=== PATIENT | male | born 1995 | race Caucasian/White ===

== ENCOUNTER 2021-07-25 20:43 | Inpatient (IN) ==
[2021-07-25] MEDS ORDERED: Isovue-370 500 ML BOTTLE IVP ONE (21:00)
[2021-07-25 21:24] LABS: Basophils % 0.6 %; Bilirubin,Urine Negative (Negative); Blood,Urine Trace (Negative); Clarity,Urine Clear (Clear); Color,Urine Light-Yellow (Yellow); Eosinophils # 0.2 K/mcL (0.0-0.6); Eosinophils % 2.6 %; Glucose,Urine (UA) Normal (Normal); Hematocrit 43.3 % (37.5-50.1); Hemoglobin 14.8 g/dL (12.9-16.9); Immature Granulocytes % 0.2 % (0-4); Ketones,Urine Negative (Negative); Leukocyte Esterase,Urine Negative (Negative); Lymphocytes # 1.9 K/mcL (0.6-4.6); Lymphocytes % 28.7 %; Mean Corpuscular HGB Conc 34.2 g/dL (31.6-35.5); Mean Corpuscular Hemoglobin 29.2 pg (28.0-33.3); Mean Corpuscular Volume 85.4 fL (83.0-100.0); Mean Platelet Volume 9.2 fL (9.4-12.4); Monocytes # 0.5 K/mcL (0.0-1.3); Monocytes % 8.2 %; Mucus,Urine Few per lpf (None-Few); Neutrophils # 3.8 K/mcL (1.6-8.9); Nitrite,Urine Negative (Negative); PH,Urine 5.5 pH Units (5.0-8.0); Platelet Count 252 K/mcL (140-400); Protein,Urine 50 mg/dL (Neg-Trace); RBC,Urine 0-3 per hpf (0-3); Red Blood Count 5.07 M/mcL (4.19-5.50); Segmented Neutrophils % 59.7 %; Specific Gravity,Urine 1.012 (1.010-1.025); Squamous Epithelial Cell,Urine Few per hpf (None-Few); Urobilinogen,Urine Normal (Normal); White Blood Count 6.4 K/mcL (4.3-11.1)
[2021-07-25 21:43] LABS: Alanine Aminotransferase 19 Units/L (7-52); Albumin 4.8 g/dL (3.5-5.7); Albumin/Globulin Ratio 2.2 (1.1-2.2); Alkaline Phosphatase 85 Units/L (34-104); Amylase 14 Units/L (29-103); Aspartate Amino Transferase 17 Units/L (13-39); BUN/Creatinine Ratio 13 (6-26); Bilirubin,Total 1.2 mg/dL (0.3-1.0); Blood Urea Nitrogen 22 mg/dL (6-20); Calcium 9.8 mg/dL (8.6-10.3); Carbon Dioxide 27 mEq/L (23-29); Chloride 103 mEq/L (98-107); Globulin 2.2 g/dL (2.4-3.5); Glucose 86 mg/dL (70-105); Lipase 7 Units/L (11-82); Osmolality,Calculated 291 (280-300); Potassium 3.6 mEq/L (3.5-5.1); Sodium 139 mEq/L (136-145); eGFR For African Americans > 60 (> 60); eGFR For Non-African Americans 51 (> 60)
[2021-07-25] MEDS ORDERED: 0.9 % Sodium Chloride 1,000 ML IV ONE (23:06)
[2021-07-25] MEDS ORDERED: cefTRIAXone 1,000 MG in 0.9 % Sodium Chloride 10 ML IVP ONE (23:08)
[2021-07-26 00:12] LABS: Estimated Average Glucose 88 mg/dl; Hemoglobin A1C 4.7 %
[2021-07-26] MEDS ORDERED: Ondansetron 4 MG/2 ML VIAL IVP PRN ×2 (00:20→11:21)
[2021-07-26] MEDS ORDERED: Melatonin 3 MG TABLET PO PRN (00:20)
[2021-07-26] MEDS ORDERED: Acetaminophen 325 MG TABLET PO PRN (00:20)
[2021-07-26] MEDS ORDERED: Naloxone 0.4 MG/ML INJ IVP PRN (00:20)
[2021-07-26] MEDS ORDERED: D5% in Water 1,000 ML IVC PRN (00:32)
[2021-07-26] MEDS ORDERED: *HR* Dextrose 50 % in Water (Syg) 50 ML SYRINGE IVP PRN (00:32)
[2021-07-26] MEDS ORDERED: Dextrose 4 GM Chewable Tablets PO PRN ×2 (00:32)
[2021-07-26] MEDS ORDERED: *HR* LORazepam 0.5 MG TABLET PO ONE (01:17)
[2021-07-26] MEDS: Ringers Solution, Lactated 1,000 ML IVC SCH ×2 (02:03→11:01)
[2021-07-26 03:20] LABS: Basophils % 0.5 %; Eosinophils # 0.1 K/mcL (0.0-0.6); Eosinophils % 2.2 %; Hematocrit 42.2 % (37.5-50.1); Hemoglobin 14.3 g/dL (12.9-16.9); Immature Granulocytes % 0.2 % (0-4); Lymphocytes # 1.6 K/mcL (0.6-4.6); Mean Corpuscular HGB Conc 33.9 g/dL (31.6-35.5); Mean Corpuscular Hemoglobin 29.1 pg (28.0-33.3); Mean Corpuscular Volume 85.8 fL (83.0-100.0); Mean Platelet Volume 9.4 fL (9.4-12.4); Monocytes # 0.6 K/mcL (0.0-1.3); Monocytes % 8.8 %; Neutrophils # 4.1 K/mcL (1.6-8.9); Platelet Count 226 K/mcL (140-400); Red Blood Count 4.92 M/mcL (4.19-5.50); Segmented Neutrophils % 63.3 %; White Blood Count 6.5 K/mcL (4.3-11.1)
[2021-07-26 03:31] LABS: Amphetamine Screen,Urine Negative ng/mL (Cutoff=1000); Barbiturate Screen,Urine Negative ng/mL (Cutoff=200); Benzodiazepines Screen,Urine Negative ng/mL (Cutoff=200); Cannabinoid Screen,Urine Negative ng/mL (Cutoff = 50); Chloride,Urine 40 mEq/L; Cocaine Screen,Urine Negative ng/mL (Cutoff= 300); Creatinine,Urine 26 mg/dL; Microalbum/Creatinine Ratio,Ur 292 mcg/mg (Less than 30); Microalbumin,Urine 76 mg/L; Opiate Screen,Urine Negative ng/mL (Cutoff=300); Phencyclidine Screen,Urine Negative ng/mL (Cutoff=25); Potassium,Urine 7.1 mEq/L; Sodium, Urine 41.9 mEq/L
[2021-07-26 03:33] LABS: INR 1.1; Prothrombin Time 12.2 Seconds (9.4-12.1)
[2021-07-26 03:36] LABS: Activated Partial Thrombo Time 30.1 Seconds (26.0-36.0)
[2021-07-26 03:53] LABS: C-Reactive Protein 14 mg/L (Less than 10); Creatine Kinase 53 Units/L (30-223); Gamma Glutamyl Transpeptidase 29 Units/L (7-64)
[2021-07-26 03:54] LABS: Alanine Aminotransferase 17 Units/L (7-52); Albumin 4.6 g/dL (3.5-5.7); Albumin/Globulin Ratio 2.6 (1.1-2.2); Alkaline Phosphatase 76 Units/L (34-104); Aspartate Amino Transferase 15 Units/L (13-39); BUN/Creatinine Ratio 13 (6-26); Bilirubin,Total 1.2 mg/dL (0.3-1.0); Blood Urea Nitrogen 21 mg/dL (6-20); Calcium 9.5 mg/dL (8.6-10.3); Carbon Dioxide 27 mEq/L (23-29); Chloride 105 mEq/L (98-107); Globulin 1.8 g/dL (2.4-3.5); Glucose 89 mg/dL (70-105); Osmolality,Calculated 296 (280-300); Phosphorous 4.2 mg/dL (2.7-4.5); Potassium 3.3 mEq/L (3.5-5.1); Sodium 142 mEq/L (136-145); Total Protein 6.4 g/dL (6.4-8.9); eGFR For African Americans > 60 (> 60); eGFR For Non-African Americans 53 (> 60)
[2021-07-26] MEDS: cefTRIAXone 1,000 MG in 0.9 % Sodium Chloride 10 ML IVP SCH (10:24)
[2021-07-26 10:31] LABS: Complement C3 141 mg/dL (87-200)
[2021-07-26] MEDS: Lactobacillus 1 EACH CAP.SPRINK PO SCH ×2 (10:31→20:07)
[2021-07-26 11:56] LABS: Hepatitis B Surface Antigen Nonreactive (Nonreactive)
[2021-07-26 12:26] LABS: Hepatitis C Virus Antibody Nonreactive (Nonreactive)
[2021-07-26 12:27] LABS: Hepatitis B Core IgM Nonreactive (Nonreactive)
[2021-07-26 12:29] LABS: Hepatitis A Antibody IgM Nonreactive (Nonreactive)
[2021-07-26] MEDS: 0.9 % Sodium Chloride 1,000 ML IVC SCH (14:41)
[2021-07-26] MEDS: Pantoprazole 40 MG VIAL IVP SCH (17:21)
[2021-07-27] MEDS: 0.9 % Sodium Chloride 1,000 ML IVC SCH ×2 (00:44→10:22)
[2021-07-27 01:07] LABS: Basophils % 0.3 %; Eosinophils # 0.2 K/mcL (0.0-0.6); Hematocrit 39.7 % (37.5-50.1); Hemoglobin 13.8 g/dL (12.9-16.9); Immature Granulocytes % 0.2 % (0-4); Lymphocytes # 1.4 K/mcL (0.6-4.6); Mean Corpuscular HGB Conc 34.8 g/dL (31.6-35.5); Mean Corpuscular Volume 86.3 fL (83.0-100.0); Mean Platelet Volume 9.4 fL (9.4-12.4); Monocytes # 0.6 K/mcL (0.0-1.3); Monocytes % 9.6 %; Neutrophils # 3.6 K/mcL (1.6-8.9); Platelet Count 200 K/mcL (140-400); Red Cell Distribution Width 11.9 % (11.5-14.5); Segmented Neutrophils % 61.9 %; White Blood Count 5.7 K/mcL (4.3-11.1)
[2021-07-27 01:27] LABS: BUN/Creatinine Ratio 11 (6-26); Blood Urea Nitrogen 16 mg/dL (6-20); Calcium 9.5 mg/dL (8.6-10.3); Carbon Dioxide 27 mEq/L (23-29); Chloride 107 mEq/L (98-107); Glucose 95 mg/dL (70-105); Osmolality,Calculated 293 (280-300); Sodium 141 mEq/L (136-145); eGFR For African Americans > 60 (> 60); eGFR For Non-African Americans 58 (> 60)
[2021-07-27] MEDS: Pantoprazole 40 MG VIAL IVP SCH (05:40)
[2021-07-27] MEDS: cefTRIAXone 1,000 MG in 0.9 % Sodium Chloride 10 ML IVP SCH (09:08)
[2021-07-27] MEDS: Lactobacillus 1 EACH CAP.SPRINK PO SCH (09:08)
[2021-07-27 10:40] VITALS: BP 135/87; PULSE 58; TEMP 97.1; O2SAT 97
[2021-07-28 12:38] LABS: Immunoglobulin A 87 mg/dL (68-408); Immunoglobulin G 577 mg/dL (768-1632); Immunoglobulin M 49 mg/dL (35-263)
== END 2021-07-27 13:31 | disposition home or self-care (01) | DRG 463 ==
LOC: 3ANU 20:43 → EMEROOARM 20:43 → SUATTDRO 07-26 00:20 → 3ANU 07-26 01:18 → SUATTDRO 07-26 13:59
PROVIDERS: ADMIT Internal Medicine; ATTEND Internal Medicine